=== PATIENT | male | born 1940 | race Caucasian/White ===

== ENCOUNTER 2016-10-17 13:09 | Day surgery (SDC) | payer MEDICARE, OTHER ==
[~2016-10-17 13:09] MED LIST: ALBUTEROL0.63 MG/3 INH; ASPIRIN81 MG PO; CALTRATE 600 WI1 TAB PO; CELEXA40 MG PO; COUMADIN4 MG PO; DIOVAN80 MG PO; FISH OIL1 GM PO; GLUCOPHAGE500 MG PO; GLUCOTEN CAPLE1 EACH PO; KLOR-CON M2020 MEQ PO; LANTUS100 UNIT/1 SUBCUT; LASIX80 MG PO; MOBIC15 MG PO; PRILOSEC40 MG PO; PROVENTIL2.5 MG/3 M INH; ULORIC40 MG PO; ZAROXOLYN2.5 MG PO
[2017-05-04] MEDS ORDERED: Tumeric PO (13:55)
[2017-05-04] MEDS ORDERED: HYDROCODON-ACE1 EAC4 PO (13:58)
[2017-05-04] MEDS ORDERED: LIPITOR40 MG PO (13:59)
== END 2016-10-17 15:22 | disposition short-term general hospital (02) ==
LOC: SURGOP 13:09 → INF/INJ 14:55 → SURGOP 15:05
PROC: 3E0U33Z Introduction of Anti-inflammatory into Joints, Percutaneous Approach (ICD-10-PCS; principal; 2016-10-17)
PROC: BQ11ZZZ Fluoroscopy of Left Hip (ICD-10-PCS; 2016-10-17)
DX: M70.62 Trochanteric bursitis, left hip (principal); J44.9 Chronic obstructive pulmonary disease, unspecified; E11.9 Type 2 diabetes mellitus without complications; K21.9 Gastro-esophageal reflux disease without esophagitis; I10 Essential (primary) hypertension; G47.30 Sleep apnea, unspecified; M54.16 Radiculopathy, lumbar region; M48.06 Spinal stenosis, lumbar region; M25.552 Pain in left hip; Z79.891 Long term (current) use of opiate analgesic; Z79.899 Other long term (current) drug therapy; Z79.01 Long term (current) use of anticoagulants; Z85.820 Personal history of malignant melanoma of skin; Z80.42 Family history of malignant neoplasm of prostate; Z83.3 Family history of diabetes mellitus; Z79.82 Long term (current) use of aspirin
CPT/HCPCS: J1040

== ENCOUNTER 2016-11-18 06:36 | Day surgery (SDC) | payer MEDICARE, OTHER ==
[2017-05-04] MEDS ORDERED: Tumeric PO (13:55)
[2017-05-04] MEDS ORDERED: HYDROCODON-ACE1 EAC4 PO (13:58)
[2017-05-04] MEDS ORDERED: LIPITOR40 MG PO (13:59)
== END 2016-11-18 09:00 | disposition short-term general hospital (02) ==
LOC: SURGOP 06:36
DX: R19.5 Other fecal abnormalities (principal); H26.9 Unspecified cataract; J44.9 Chronic obstructive pulmonary disease, unspecified; E11.3299 Type 2 diabetes mellitus with mild nonproliferative diabetic retinopathy without macular edema, unspecified eye; M51.37 Other intervertebral disc degeneration, lumbosacral region; K57.30 Diverticulosis of large intestine without perforation or abscess without bleeding; M10.9 Gout, unspecified; I10 Essential (primary) hypertension; Z86.718 Personal history of other venous thrombosis and embolism; Z86.010 Personal history of colon polyps; Z86.2 Personal history of diseases of the blood and blood-forming organs and certain disorders involving the immune mechanism; Z79.01 Long term (current) use of anticoagulants; Z85.828 Personal history of other malignant neoplasm of skin; Z79.899 Other long term (current) drug therapy; Z79.4 Long term (current) use of insulin; Z53.8 Procedure and treatment not carried out for other reasons

== ENCOUNTER 2016-12-16 07:51 | Day surgery (SDC) | payer MEDICARE, OTHER ==
[2017-05-04] MEDS ORDERED: Tumeric PO (13:55)
[2017-05-04] MEDS ORDERED: HYDROCODON-ACE1 EAC4 PO (13:58)
[2017-05-04] MEDS ORDERED: LIPITOR40 MG PO (13:59)
== END 2016-12-16 10:15 | disposition short-term general hospital (02) ==
LOC: SURGOP 07:51
PROC: 0DJD8ZZ Inspection of Lower Intestinal Tract, Via Natural or Artificial Opening Endoscopic (ICD-10-PCS; principal; 2016-12-16)
DX: K57.30 Diverticulosis of large intestine without perforation or abscess without bleeding (principal); K62.5 Hemorrhage of anus and rectum; I10 Essential (primary) hypertension; J44.9 Chronic obstructive pulmonary disease, unspecified; E66.9 Obesity, unspecified; Z86.010 Personal history of colon polyps; Z96.659 Presence of unspecified artificial knee joint; Z98.49 Cataract extraction status, unspecified eye; Z79.82 Long term (current) use of aspirin; Z79.891 Long term (current) use of opiate analgesic; Z79.4 Long term (current) use of insulin; Z79.01 Long term (current) use of anticoagulants; Z79.899 Other long term (current) drug therapy; Z86.711 Personal history of pulmonary embolism; Z68.42 Body mass index [BMI] 45.0-49.9, adult; Z87.891 Personal history of nicotine dependence

== ENCOUNTER → 2016-12-24 | Outpatient (CLI) | payer MEDICARE, OTHER ==
[~2016-12-24] MED LIST changes: +HYDROCODON-ACE1 EAC4 PO; +LIPITOR40 MG PO; +Tumeric PO
== END | disposition short-term general hospital (02) ==
LOC: CLORTH 03:43
DX: M51.16 Intervertebral disc disorders with radiculopathy, lumbar region (principal); M47.26 Other spondylosis with radiculopathy, lumbar region; M25.552 Pain in left hip; M48.06 Spinal stenosis, lumbar region
CPT/HCPCS: 73502-LT